=== PATIENT | female | born 1980 | race Caucasian/White ===

== ENCOUNTER 2018-04-19 21:28 | Emergency (ER) | payer BC ==
[2018-04-19] MEDS ORDERED: ONDANSETRON 4 MG/2 ML VIAL IVP STA (22:11)
[2018-04-19] MEDS ORDERED: SODIUM CHLORIDE 0.9% 1,000 ML IV STA (22:11)
[2018-04-19 22:58] LABS: Basophils % (A) 1 %; Eosinophils # (A) 0.1 k/uL (0-0.7); Eosinophils % (A) 2 %; HCT 44.6 % (34.0-46.0); Lymphocytes # (A) 0.7 k/uL (1.0-4.8); Lymphocytes % (A) 7 %; MCH 30.5 pg (25.0-35.0); MCHC 33.7 g/dL (31.0-37.0); MCV 90.6 fL (80.0-100.0); Mean Platelet Volume 7.7; Monocytes # (A) 0.5 k/uL (0-1.0); Monocytes % (A) 5 %; Neutrophils # (A) 7.8 k/uL (1.3-7.7); Neutrophils % (A) 85 %; Platelet Count 176 k/uL (150-450); RBC 4.92 m/uL (3.80-5.40); RDW 12.8 % (11.5-15.5); WBC 9.2 k/uL (3.8-10.6)
[2018-04-19 23:01] LABS: Appearance,Urine Clear (Clear); Bilirubin,Urine Negative (Negative); Blood,Urine Negative (Negative); Color,Urine Yellow; Glucose,Urine (UA) Negative (Negative); Ketones,Urine 4+ (Negative); Leukocyte Esterase,Urine Small (Negative); Mucus,Urine Moderate /hpf; Nitrite,Urine Negative (Negative); Protein,Urine Trace (Negative); RBC,Urine 2 /hpf (0-5); Specific Gravity,Urine 1.029 (1.001-1.035); Squamous Epithelial Cell,Urine 7 /hpf (0-4)
[2018-04-19 23:02] LABS: ALT 31 U/L (9-52); AST 24 U/L (14-36); Albumin 4.3 g/dL (3.5-5.0); Alkaline Phosphatase 75 U/L (38-126); Amylase 50 U/L (30-110); Anion Gap 10 mmol/L; Blood Urea Nitrogen 12 mg/dL (7-17); Calcium 9.8 mg/dL (8.4-10.2); Carbon Dioxide 21 mmol/L (22-30); Chloride 107 mmol/L (98-107); Glucose 99 mg/dL (74-99); Lipase 48 U/L (23-300); Potassium 4.1 mmol/L (3.5-5.1); Sodium 138 mmol/L (137-145); Total Protein 7.4 g/dL (6.3-8.2)
--- NOTE | 2018-04-19 23:44 | ED ---
General Adult HPI - General Chief complaint: Nausea/Vomiting/Diarrhea Stated complaint: Vomiting Source: patient, RN notes reviewed, old records reviewed Mode of arrival: ambulatory Limitations: no limitations - History of Present Illness Initial comments: 37-year-old female patient with past history of migraine disorder presents to ED with 3 days of sinus congestion, left otalgia. Patient additionally complained of approximately 4 episodes of nausea and vomiting today, and a headache located in her L frontal lobe. Pt reports that the headache has been waxing and waning for approximately 3 days. Pt states that she has a history of migraine headaches and they are located in the same location. Patient states that this seems like her typical migraine headache however less severe. Patient reports that she also has nausea and vomiting with her migraine headaches. Pt denies acute onset, thunderclap, worst headache of life. Pt denies recent fall or trauma Patient denies any other complaints. Patient denies chest pain, shortness of breath, abdominal pain. Systemic: Pt denies fatigue, myalgia, fever/chills, rash. Pt denies weakness, night sweats, weight loss. Neuro: Pt denies headache, visual disturbances, syncope or pre-syncope. HEENT: Pt denies ocular discharge or irritation, pharyngitis or notable lymphadenopathy. Cardiopulmonary: Pt denies chest pain, SOB, heart palpitations, dyspnea on exertion. Abdominal/GI: Pt denies abdominal pain. : Pt denies dysuria, burning w/ urination, frequency/urgency. Denies new onset urinary or bowel incontinence. MSK: Pt denies myalgia, loss of strength or function in extremities. Neuro: Pt denies new onset weakness, paresthesias. - Related Data Home Medications Medication Instructions Recorded Confirmed Naproxen Sodium [Aleve] 220 mg PO DAILY PRN 04/19/18 04/19/18 Phenylephrine/Dm/Acetaminop/GG 15 ml PO Q6H PRN 04/19/18 04/19/18 [Vicks Dayquil Severe Cold-Flu] Previous Rx's Medication Instructions Recorded Amoxicillin/Potassium Clav 1 each PO Q12HR #20 tab 04/20/18 [Augmentin 875-125 Tablet] Ondansetron Odt [Zofran ODT] 4 mg PO Q8HR PRN #20 tab 04/20/18 Allergies Allergy/AdvReac Type Severity Reaction Status Date / Time No Known Allergies Allergy Verified 04/19/18 23:05 Review of Systems ROS Statement: Those systems with pertinent positive or pertinent negative responses have been documented in the HPI. ROS Other: All systems not noted in ROS Statement are negative. Past Medical History Past Medical History: No Reported History History of Any Multi-Drug Resistant Organisms: None Reported Past Surgical History: Appendectomy Additional Past Surgical History / Comment(s): FALLOPIAN TUBE REMOVAL Past Psychological History: No Psychological Hx Reported Smoking Status: Never smoker Past Alcohol Use History: None Reported, Occasional Past Drug Use History: None Reported General Exam - General Exam Comments Initial Comments: Constitutional: NAD, AOX3, Pt has pleasant affect. HEENT: NC/AT, trachea midline, neck supple, no lymphadenopathy. Posterior pharynx non erythematous, without exudates. External ears appear normal, without discharge. Ears irrigated bilaterally, large amount of cerumen removed from each ear canal. TM pale ulloa bilaterally. L TM mildly erythematous, R TM pale ulloa. No bulging or perforation bilaterally. Mucous membranes moist. Eyes PERRLA, EOM intact. There is no scleral icterus. No pallor noted. Cardiopulmonary: RRR, no murmurs, rubs or gallops, no JVD noted. Lungs CTAB in anterior and posterior vaz. No peripheral edema. Abdominal exam: Abdomen soft and non-distended. Abdomen non-tender to palpation in all 4 quadrants. Bowel sounds active in LLQ. No hepatosplenomegaly. No ecchymosis Neuro: CN II-XII intact. No nuchal rigidity. Kernigs and Brudzinski's negative. MSK: No posterior calf tenderness bilaterally, homans sign negative bilaterally. Posterior tibialis and radial pulse +2 bilaterally. Sensation intact in upper and lower extremities. Full active ROM in upper and lower extremities, 5/5 stregnth. Limitations: no limitations Course Vital Signs 04/19/18 04/20/18 21:52 02:02 Temperature 98.3 F 98.6 F Pulse Rate 82 67 Respiratory 16 18 Rate Blood Pressure 120/81 122/79 O2 Sat by Pulse 99 98 Oximetry Medical Decision Making - Medical Decision Making 37-year-old female patient with past history of migraine disorder presents to ED with 3 days of sinus congestion, left otalgia. Patient additionally complained of approximately 4 episodes of nausea and vomiting today, and a headache located in her L frontal lobe. Pt reports that the headache has been waxing and waning for approximately 3 days. Pt states that she has a history of migraine headaches and they are located in the same location. Patient states that this seems like her typical migraine headache however less severe. Patient reports that she also has nausea and vomiting with her migraine headaches. Pt denies acute onset, thunderclap, worst headache of life. Pt denies recent fall or trauma. Physical exam revealed cerumen impaction, ears irrigated bilatearlly. Neuro exam wnl. Pt states otalgia improved. Repeat exam revealed mildly erythematous L TM. Laboratory investigations revealed non- impressive CBC, CMP, lactic acid negative. UA displayed +4 ketones, negative HCG. Influenza swab negative. Pt improved with IV fluids, zofran, toradol. Pt to be treated with augmentin for sinusitis and otitis media. Headache resolved. Pt to follow with PCP in 1-2 days. Patient to return to ED if new signs or symptoms develop or if condition worsens in any way. Case discussed with Dr. Nielsen. - Lab Data Result diagrams: 04/19/18 22:40 04/19/18 22:40 Lab Results 04/19/18 04/19/18 04/19/18 Range/Units 22:40 22:40 22:40 WBC 9.2 (3.8-10.6) k/uL RBC 4.92 (3.80-5.40) m/uL Hgb 15.0 (11.4-16.0) gm/dL Hct 44.6 (34.0-46.0) % MCV 90.6 (80.0-100.0) fL MCH 30.5 (25.0-35.0) pg MCHC 33.7 (31.0-37.0) g/dL RDW 12.8 (11.5-15.5) % Plt Count 176 (150-450) k/uL Neutrophils % 85 % Lymphocytes % 7 % Monocytes % 5 % Eosinophils % 2 % Basophils % 1 % Neutrophils # 7.8 H (1.3-7.7) k/uL Lymphocytes # 0.7 L (1.0-4.8) k/uL Monocytes # 0.5 (0-1.0) k/uL Eosinophils # 0.1 (0-0.7) k/uL Basophils # 0.0 (0-0.2) k/uL Sodium 138 (137-145) mmol/L Potassium 4.1 (3.5-5.1) mmol/L Chloride 107 (98-107) mmol/L Carbon Dioxide 21 L (22-30) mmol/L Anion Gap 10 mmol/L BUN 12 (7-17) mg/dL Creatinine 0.59 (0.52-1.04) mg/dL Est GFR (CKD-EPI)AfAm >90 (>60 ml/min/1.73 sqM) Est GFR (CKD-EPI)NonAf >90 (>60 ml/min/1.73 sqM) Glucose 99 (74-99) mg/dL Plasma Lactic Acid Dez (0.7-2.0) mmol/L Calcium 9.8 (8.4-10.2) mg/dL Total Bilirubin 1.0 (0.2-1.3) mg/dL AST 24 (14-36) U/L ALT 31 (9-52) U/L Alkaline Phosphatase 75 (38-126) U/L Total Protein 7.4 (6.3-8.2) g/dL Albumin 4.3 (3.5-5.0) g/dL Amylase 50 (30-110) U/L Lipase 48 (23-300) U/L Urine Color Urine Appearance (Clear) Urine pH (5.0-8.0) Ur Specific [place] (1.001-1.035) Urine Protein (Negative) Urine Glucose (UA) (Negative) Urine Ketones (Negative) Urine Blood (Negative) Urine Nitrite (Negative) Urine Bilirubin (Negative) Urine Urobilinogen (<2.0) mg/dL Ur Leukocyte Esterase (Negative) Urine RBC (0-5) /hpf Urine WBC (0-5) /hpf Ur Squamous Epith Cells (0-4) /hpf Urine Mucus (None) /hpf Urine HCG, Qual (Not Detectd) Influenza Type A RNA Not Detected (Not Detectd) Influenza Type B (PCR) Not Detected (Not Detectd) 04/19/18 04/19/18 04/19/18 Range/Units 22:40 22:44 22:44 WBC (3.8-10.6) k/uL RBC (3.80-5.40) m/uL Hgb (11.4-16.0) gm/dL Hct (34.0-46.0) % MCV (80.0-100.0) fL MCH (25.0-35.0) pg MCHC (31.0-37.0) g/dL RDW (11.5-15.5) % Plt Count (150-450) k/uL Neutrophils % % Lymphocytes % % Monocytes % % Eosinophils % % Basophils % % Neutrophils # (1.3-7.7) k/uL Lymphocytes # (1.0-4.8) k/uL Monocytes # (0-1.0) k/uL Eosinophils # (0-0.7) k/uL Basophils # (0-0.2) k/uL Sodium (137-145) mmol/L Potassium (3.5-5.1) mmol/L Chloride (98-107) mmol/L Carbon Dioxide (22-30) mmol/L Anion Gap mmol/L BUN (7-17) mg/dL Creatinine (0.52-1.04) mg/dL Est GFR (CKD-EPI)AfAm (>60 ml/min/1.73 sqM) Est GFR (CKD-EPI)NonAf (>60 ml/min/1.73 sqM) Glucose (74-99) mg/dL Plasma Lactic Acid Dez 0.9 (0.7-2.0) mmol/L Calcium (8.4-10.2) mg/dL Total Bilirubin (0.2-1.3) mg/dL AST (14-36) U/L ALT (9-52) U/L Alkaline Phosphatase (38-126) U/L Total Protein (6.3-8.2) g/dL Albumin (3.5-5.0) g/dL Amylase (30-110) U/L Lipase (23-300) U/L Urine Color Yellow Urine Appearance Clear (Clear) Urine pH 6.0 (5.0-8.0) Ur Specific [place] 1.029 (1.001-1.035) Urine Protein Trace H (Negative) Urine Glucose (UA) Negative (Negative) Urine Ketones 4+ H (Negative) Urine Blood Negative (Negative) Urine Nitrite Negative (Negative) Urine Bilirubin Negative (Negative) Urine Urobilinogen 2.0 (<2.0) mg/dL Ur Leukocyte Esterase Small H (Negative) Urine RBC 2 (0-5) /hpf Urine WBC 2 (0-5) /hpf Ur Squamous Epith Cells 7 H (0-4) /hpf Urine Mucus Moderate H (None) /hpf Urine HCG, Qual Not Detected (Not Detectd) Influenza Type A RNA (Not Detectd) Influenza Type B (PCR) (Not Detectd) Disposition Clinical Impression: Sinusitis, Cerumen impaction, Viral syndrome, Otitis media Disposition: HOME SELF-CARE Condition: Good Instructions: Sinusitis (ED), Cerumen Impaction (ED), Acute Nausea and Vomiting (ED) Additional Instructions: Patient to adhere to previously discussed treatment plan and will take medication(s) as directed. Patient to follow up with PCP in 1-2 days. Patient to return to ED if symptoms do not improve. Prescriptions: Amoxicillin/Potassium Clav [Augmentin 875-125 Tablet] 1 each PO Q12HR #20 tab Ondansetron Odt [Zofran ODT] 4 mg PO Q8HR PRN #20 tab PRN Reason: Nausea Is patient prescribed a controlled substance at d/c from ED?: No Referrals: Stanley Randle MD [Primary Care Provider] - 1-2 days Time of Disposition: 02:01
[2018-04-20] MEDS ORDERED: KETOROLAC 30 MG/ML 1 ML VIAL IVP STA (00:03)
[2018-04-20 02:12] VITALS: BP 122/79; PULSE 67; RESP 18; TEMP 98.6
== END 2018-04-20 02:03 | disposition home or self-care (01) ==
LOC: EC 21:28
DX: J32.9 Chronic sinusitis, unspecified (principal); H66.92 Otitis media, unspecified, left ear; B34.9 Viral infection, unspecified; H61.23 Impacted cerumen, bilateral
CPT/HCPCS: 36415; 80053; 82150; 83605; 83690; 85025; 81001; 81025; 87502; 99284; 69209 ×2; 96374; 96375; 96361; J2405; J1885

== ENCOUNTER 2018-08-30 19:33 | Emergency (ER) | payer BC ==
[2018-08-30] MEDS ORDERED: SODIUM CHLORIDE 0.9% 1,000 ML IV ONE (20:05)
[2018-08-30 20:39] LABS: Appearance,Urine Clear (Clear); Bilirubin,Urine Negative (Negative); Blood,Urine Moderate (Negative); Color,Urine Light Red; Glucose,Urine (UA) Negative (Negative); Ketones,Urine Negative (Negative); Leukocyte Esterase,Urine Trace (Negative); Mucus,Urine Rare /hpf; Nitrite,Urine Negative (Negative); Protein,Urine 1+ (Negative); RBC,Urine >182 /hpf (0-5); Specific Gravity,Urine 1.029 (1.001-1.035); Squamous Epithelial Cell,Urine 1 /hpf (0-4)
--- NOTE | 2018-08-30 20:59 | ED ---
Female Urogenital HPI - General Chief complaint: Vaginal Bleeding Stated complaint: Vaginal Bleeding Time Seen by Provider: 08/30/18 19:46 Source: patient Mode of arrival: ambulatory Limitations: no limitations - History of Present Illness Initial comments: 37-year-old female patient presents to the emergency department today for evaluation of heavy vaginal bleeding with passage of clots. Patient's that she's had bleeding for the last 3 days however starting this morning the bleeding became more heavy and she has passed medium-sized clots. Patient states that at one point she did have to change her pad after only having and on for a few minutes that she presented here for further evaluation. Patient states she did have an elective performed 4-5 weeks ago. States for a couple of days she did have a follow odor noted but that did resolve. States she does have a follow-up appointment with her physician in a week. She denies any fever or chills with this. Denies any hematuria, dysuria, urinary frequency, urinary urgency. Denies any significant abdominal or low back pain. Patient denies any recent rash, shortness breath, chest pain, nausea, vomiting, diarrhea, constipation, back pain, numbness, tingling, dizziness, weakness, headache, visual changes, or any other complaints. - Related Data Home Medications Medication Instructions Recorded Confirmed Naproxen Sodium [Aleve] 220 mg PO DAILY PRN 04/19/18 04/19/18 Phenylephrine/Dm/Acetaminop/GG 15 ml PO Q6H PRN 04/19/18 04/19/18 [Vicks Dayquil Severe Cold-Flu] Previous Rx's Medication Instructions Recorded Amoxicillin/Potassium Clav 1 each PO Q12HR #20 tab 04/20/18 [Augmentin 875-125 Tablet] Ondansetron Odt [Zofran ODT] 4 mg PO Q8HR PRN #20 tab 04/20/18 Allergies Allergy/AdvReac Type Severity Reaction Status Date / Time No Known Allergies Allergy Verified 08/30/18 19:37 Review of Systems ROS Statement: Those systems with pertinent positive or pertinent negative responses have been documented in the HPI. ROS Other: All systems not noted in ROS Statement are negative. Past Medical History Past Medical History: No Reported History History of Any Multi-Drug Resistant Organisms: None Reported Past Surgical History: Appendectomy Additional Past Surgical History / Comment(s): FALLOPIAN TUBE REMOVAL Past Psychological History: No Psychological Hx Reported Smoking Status: Current every day smoker Past Alcohol Use History: None Reported, Occasional Past Drug Use History: None Reported General Exam Limitations: no limitations General appearance: alert, in no apparent distress, other (Physical well- developed, well-nourished adult female patient in no acute distress. Vital signs upon presentation are temperature 98.5F, pulse 77, respirations 18, blood pressure 145/87, pulse ox 99% on room air.) Eye exam: Present: normal appearance, PERRL, EOMI. Absent: scleral icterus, conjunctival injection, periorbital swelling ENT exam: Present: normal exam, normal oropharynx, mucous membranes moist Respiratory exam: Present: normal lung sounds bilaterally. Absent: respiratory distress, wheezes, rales, rhonchi, stridor Cardiovascular Exam: Present: regular rate, normal rhythm, normal heart sounds. Absent: systolic murmur, diastolic murmur, rubs, gallop, clicks GI/Abdominal exam: Present: soft, normal bowel sounds. Absent: distended, tenderness, guarding, rebound, rigid External exam: Present: normal external exam Speculum exam: Present: vaginal bleeding (Moderate), other (Small clots noted in the vaginal vault) By manual exam: Present: normal by manual exam Neurological exam: Present: alert, oriented X3, CN II-XII intact Psychiatric exam: Present: normal affect, normal mood Skin exam: Present: warm, dry, intact, normal color. Absent: rash Course Vital Signs 08/30/18 08/30/18 08/30/18 19:35 22:12 22:59 Temperature 98.5 F 98.2 F Pulse Rate 77 62 Respiratory 18 15 16 Rate Blood Pressure 145/87 104/71 O2 Sat by Pulse 99 97 Oximetry Medical Decision Making - Medical Decision Making 37 year-old female patient presents to the emergency department today for evaluation of heavy vaginal bleeding and passage of clots. Patient did undergo elective 4-5 weeks ago. Patient states bleeding started 3 days ago and has increased and heaviness today. Pelvic exam was obtained and did show mild to moderate vaginal bleeding with passage of small clots. Ultrasound was obtained and did show a thickened and edematous endometrium consistent with recent termination of . Labs reviewed and were unremarkable. Hemoglobin is stable. Vital signs upon within normal range as well as department. Patient denies any significant pain or discomfort. She'll be discharged to follow-up with her special effects designer for recheck as soon as possible. Return parameters were discussed in detail and she verbalizes understanding and agrees this plan. - Lab Data Result diagrams: 08/30/18 20:45 08/30/18 20:45 Lab Results 08/30/18 08/30/18 08/30/18 Range/Units 20:15 20:45 20:45 WBC 6.1 (3.8-10.6) k/uL RBC 4.44 (3.80-5.40) m/uL Hgb 13.6 (11.4-16.0) gm/dL Hct 40.6 (34.0-46.0) % MCV 91.4 (80.0-100.0) fL MCH 30.6 (25.0-35.0) pg MCHC 33.4 (31.0-37.0) g/dL RDW 13.5 (11.5-15.5) % Plt Count 190 (150-450) k/uL Neutrophils % 58 % Lymphocytes % 31 % Monocytes % 4 % Eosinophils % 4 % Basophils % 1 % Neutrophils # 3.6 (1.3-7.7) k/uL Lymphocytes # 1.9 (1.0-4.8) k/uL Monocytes # 0.3 (0-1.0) k/uL Eosinophils # 0.2 (0-0.7) k/uL Basophils # 0.0 (0-0.2) k/uL Sodium 140 (137-145) mmol/L Potassium 4.1 (3.5-5.1) mmol/L Chloride 111 H (98-107) mmol/L Carbon Dioxide 22 (22-30) mmol/L Anion Gap 7 mmol/L BUN 16 (7-17) mg/dL Creatinine 0.66 (0.52-1.04) mg/dL Est GFR (CKD-EPI)AfAm >90 (>60 ml/min/1.73 sqM) Est GFR (CKD-EPI)NonAf >90 (>60 ml/min/1.73 sqM) Glucose 86 (74-99) mg/dL Calcium 9.5 (8.4-10.2) mg/dL Total Bilirubin 0.3 (0.2-1.3) mg/dL AST 24 (14-36) U/L ALT 16 (9-52) U/L Alkaline Phosphatase 79 (38-126) U/L Total Protein 7.0 (6.3-8.2) g/dL Albumin 4.3 (3.5-5.0) g/dL HCG, Quant mIU/mL Urine Color Light Red Urine Appearance Clear (Clear) Urine pH 6.0 (5.0-8.0) Ur Specific [place] 1.029 (1.001-1.035) Urine Protein 1+ H (Negative) Urine Glucose (UA) Negative (Negative) Urine Ketones Negative (Negative) Urine Blood Moderate H (Negative) Urine Nitrite Negative (Negative) Urine Bilirubin Negative (Negative) Urine Urobilinogen 2.0 (<2.0) mg/dL Ur Leukocyte Esterase Trace H (Negative) Urine RBC >182 H (0-5) /hpf Urine WBC 26 H (0-5) /hpf Ur Squamous Epith Cells 1 (0-4) /hpf Urine Mucus Rare H (None) /hpf 08/30/18 Range/Units 20:45 WBC (3.8-10.6) k/uL RBC (3.80-5.40) m/uL Hgb (11.4-16.0) gm/dL Hct (34.0-46.0) % MCV (80.0-100.0) fL MCH (25.0-35.0) pg MCHC (31.0-37.0) g/dL RDW (11.5-15.5) % Plt Count (150-450) k/uL Neutrophils % % Lymphocytes % % Monocytes % % Eosinophils % % Basophils % % Neutrophils # (1.3-7.7) k/uL Lymphocytes # (1.0-4.8) k/uL Monocytes # (0-1.0) k/uL Eosinophils # (0-0.7) k/uL Basophils # (0-0.2) k/uL Sodium (137-145) mmol/L Potassium (3.5-5.1) mmol/L Chloride (98-107) mmol/L Carbon Dioxide (22-30) mmol/L Anion Gap mmol/L BUN (7-17) mg/dL Creatinine (0.52-1.04) mg/dL Est GFR (CKD-EPI)AfAm (>60 ml/min/1.73 sqM) Est GFR (CKD-EPI)NonAf (>60 ml/min/1.73 sqM) Glucose (74-99) mg/dL Calcium (8.4-10.2) mg/dL Total Bilirubin (0.2-1.3) mg/dL AST (14-36) U/L ALT (9-52) U/L Alkaline Phosphatase (38-126) U/L Total Protein (6.3-8.2) g/dL Albumin (3.5-5.0) g/dL HCG, Quant 12.1 mIU/mL Urine Color Urine Appearance (Clear) Urine pH (5.0-8.0) Ur Specific [place] (1.001-1.035) Urine Protein (Negative) Urine Glucose (UA) (Negative) Urine Ketones (Negative) Urine Blood (Negative) Urine Nitrite (Negative) Urine Bilirubin (Negative) Urine Urobilinogen (<2.0) mg/dL Ur Leukocyte Esterase (Negative) Urine RBC (0-5) /hpf Urine WBC (0-5) /hpf Ur Squamous Epith Cells (0-4) /hpf Urine Mucus (None) /hpf - Radiology Data Radiology results: report reviewed, image reviewed Transvaginal ultrasound was obtained. Report reviewed in its entirety. Impression by Dr. Longoria shows heterogenous and edematous uterus a prominent endometrium. His eyes are consistent with reported history of recent termin ation of . Close clinical follow-up, serial beta hCGs and sonographic evaluation recommended to ensure beta hCG returns to 0 and exclude retained products of conception. Disposition Clinical Impression: Vaginal bleeding Disposition: HOME SELF-CARE Condition: Good Instructions (If sedation given, give patient instructions): Dysfunctional Uterine Bleeding (ED) Additional Instructions: Increase fluids. Rest. Follow-up with your physician for recheck as soon as possible. Return to the emergency department immediately for any new, worsening, or concerning symptoms. Is patient prescribed a controlled substance at d/c from ED?: No Referrals: Stanley Randle MD [Primary Care Provider] - 1-2 days Time of Disposition: 22:43
[2018-08-30 21:26] LABS: Basophils % (A) 1 %; Eosinophils # (A) 0.2 k/uL (0-0.7); Eosinophils % (A) 4 %; HCT 40.6 % (34.0-46.0); HGB 13.6 gm/dL (11.4-16.0); Lymphocytes # (A) 1.9 k/uL (1.0-4.8); Lymphocytes % (A) 31 %; MCH 30.6 pg (25.0-35.0); MCHC 33.4 g/dL (31.0-37.0); MCV 91.4 fL (80.0-100.0); Mean Platelet Volume 8.3; Monocytes # (A) 0.3 k/uL (0-1.0); Monocytes % (A) 4 %; Neutrophils # (A) 3.6 k/uL (1.3-7.7); Neutrophils % (A) 58 %; Platelet Count 190 k/uL (150-450); RBC 4.44 m/uL (3.80-5.40); RDW 13.5 % (11.5-15.5); WBC 6.1 k/uL (3.8-10.6)
[2018-08-30 21:30] LABS: ALT 16 U/L (9-52); AST 24 U/L (14-36); Albumin 4.3 g/dL (3.5-5.0); Alkaline Phosphatase 79 U/L (38-126); Anion Gap 7 mmol/L; Blood Urea Nitrogen 16 mg/dL (7-17); Calcium 9.5 mg/dL (8.4-10.2); Carbon Dioxide 22 mmol/L (22-30); Chloride 111 mmol/L (98-107); Glucose 86 mg/dL (74-99); Potassium 4.1 mmol/L (3.5-5.1); Sodium 140 mmol/L (137-145); Total Bilirubin 0.3 mg/dL (0.2-1.3)
--- NOTE | 2018-08-30 21:35 | US ---
EXAMINATION TYPE: US transvaginal DATE OF EXAM: 08/30/2018 COMPARISON: Transvaginal ultrasound 06/17/2014. CLINICAL HISTORY: Pelvic pain. Patient states having an 4-5 weeks ago. Patient states havin g an increase in spotting today. Hx of left fallopian tube removal. TECHNIQUE: Transvaginal (TV). Date of LMP: Unknown, A2 EXAM MEASUREMENTS: Uterus: 8.1 x 4.5 x 4.2 cm Endometrial Stripe: 1.5 cm Right Ovary: 2.3 x 1.6 x 1.7 cm Left Ovary: 2.4 x 1.9 x 2.4 cm 1. Uterus: Anteverted and heterogenous 2. Endometrium: Thickened and heterogenous measuring up to 1.5 cm 3. Right Ovary: follicles seen 4. Left Ovary: hypoechoic lesion - 1.3 x 1.2 x 1.2 cm Spectral, color and waveform doppler imaging shows good arterial and venous flow within the ovaries ; there is no evidence for ovarian torsion. 5. Bilateral Adnexa: wnl 6. Posterior cul-de-sac: no free fluid IMPRESSION: Heterogenous and edematous uterus with prominent endometrium. These findings are consistent with the reported history of recent termination of . Close clinical follow-up, serial beta hCGs and s onographic evaluation are recommended to ensure beta hCG returns to 0 and exclude retained products o f conception.
[2018-08-30 22:13] VITALS: BP 104/71; PULSE 62; TEMP 98.2
[2018-08-30 23:00] VITALS: RESP 16
== END 2018-08-30 22:55 | disposition home or self-care (01) ==
LOC: EC 19:33
DX: N93.9 Abnormal uterine and vaginal bleeding, unspecified (principal); R93.89 Abnormal findings on diagnostic imaging of other specified body structures; F17.200 Nicotine dependence, unspecified, uncomplicated; Z90.79 Acquired absence of other genital organ(s)
CPT/HCPCS: 36415; 76830; 80053; 81001; 84702; 85025; 87070; 87086; 87205; 93975; 96360; 99284

== ENCOUNTER → 2019-06-25 | Outpatient (CLI) | payer BC ==
[2019-06-25 13:31] LABS: Basophils % (A) 1 %; Eosinophils # (A) 0.2 k/uL (0-0.7); Eosinophils % (A) 3 %; HGB 13.7 gm/dL (11.4-16.0); Lymphocytes # (A) 1.6 k/uL (1.0-4.8); Lymphocytes % (A) 29 %; MCH 30.6 pg (25.0-35.0); MCHC 32.6 g/dL (31.0-37.0); MCV 93.7 fL (80.0-100.0); Mean Platelet Volume 8.7; Monocytes # (A) 0.3 k/uL (0-1.0); Monocytes % (A) 5 %; Neutrophils # (A) 3.4 k/uL (1.3-7.7); Neutrophils % (A) 61 %; Platelet Count 192 k/uL (150-450); RBC 4.48 m/uL (3.80-5.40); RDW 12.2 % (11.5-15.5); WBC 5.6 k/uL (3.8-10.6)
== END | disposition home or self-care (01) ==
LOC: LABPAT 13:03
PROVIDERS: ATTEND Obstetrics & Gynecology
DX: Z01.818 Encounter for other preprocedural examination (principal)
CPT/HCPCS: 36415; 85025

== ENCOUNTER 2019-11-12 05:46 | Day surgery (SDC) | payer BC, OTHER ==
[2019-11-09 10:22] VITALS: BMI 30.2
--- NOTE | 2019-11-11 07:59 | P.HPOB ---
History of Present Illness H&P Date: 11/11/19 Chief Complaint: Pt requesting tubal ligation. This patient is a pleasant 38 yr female who presents requesting laparoscopic tubal cauterization for permanent sterilization. She and I have discussed various control methods and this is the method she has chosen. Partner will not get a vasectomy. Past Medical History Past Medical History: No Reported History History of Any Multi-Drug Resistant Organisms: None Reported Past Surgical History: Appendectomy Additional Past Surgical History / Comment(s): FALLOPIAN TUBE REMOVAL. Past Anesthesia/Blood Transfusion Reactions: No Reported Reaction Past Psychological History: No Psychological Hx Reported Smoking Status: Current every day smoker Past Alcohol Use History: None Reported, Occasional Additional Past Alcohol Use History / Comment(s): Smokes 1/2 PPD X 2 yrs. Prior to this had quit for 4 yrs. Past Drug Use History: None Reported - Past Family History Mother Family Medical History: No Reported History Medications and Allergies Home Medications Medication Instructions Recorded Confirmed Type No Known Home Medications 11/09/19 11/09/19 History Allergies Allergy/AdvReac Type Severity Reaction Status Date / Time No Known Allergies Allergy Verified 11/09/19 10:12 Exam - OBG Physical Exam Abdomen: bowel sounds normal, no diffuse tenderness, no bruit present, no guarding noted, no hepatomegaly, no splenomegaly, no mass Vulva: both: normal Vagina: normal moisture, no discharge Cervix: no lesion, no discharge Uterus: normal size, normal contour Adnexa: both: normal Assessment and Plan Assessment: This is a pleasant 39 yr female who presents requesting permanent sterilization. Plan is laparoscopic bilateral fallopian tube cauterization. She understands that this procedure is considered permanent, however there is a failure rate of ~08/999 procedures done. She also understands that if she becomes , she has a ~50% chance of ectopic/tubal . I have discussed the risks of this surgery: infection, bleeding, possible injury to bowel/bladder/vessels and/or other organs. She understands that this procedure is elective and alternative exist. All of her questions were answered and a written consent obtained. (1) Family planning Status: Acute Code(s): Z30.09 - ENCOUNTER FOR OTH GENERAL CNSL AND ADVICE ON CONTRACEPTION SNOMED Code(s): 245799788
[~2019-11-12 05:46] MED LIST: Pre Op ABX Message 1 EACH MISC MISCELLANE ONE
[2019-11-12] MEDS ORDERED: LIDOCAINE 1% (10MG/ML) FOR IV START INTRADERMA PRN (05:53)
[2019-11-12] MEDS ORDERED: SCOPOLAMINE 1.5MG/72HR PATCH TRANSDERM ONE (05:53)
[2019-11-12] MEDS ORDERED: DEXAMETHASONE SOD PHOSPHATE 10 MG/ML 1 ML VIAL IV ONE (05:53)
[2019-11-12] MEDS ORDERED: HYDROmorphone 0.5 MG/0.5 ML SYRINGE IVP PRN (05:53)
[2019-11-12] MEDS ORDERED: ONDANSETRON 4 MG/2 ML VIAL IVP ONE (05:53)
[2019-11-12] MEDS ORDERED: LACTATED RINGERS 1,000 ML IV SCH (05:53)
[2019-11-12] MEDS ORDERED: ONDANSETRON 4 MG/2 ML VIAL ONE (06:23)
[2019-11-12] MEDS ORDERED: BUPIVACAINE (PF) 0.5% 30 ML VIAL SQ ONE ×2 (06:59→07:38)
[2019-11-12] MEDS ORDERED: ROCURONIUM BROMIDE 10 MG/ML 5 ML VIAL IV ONE (07:07)
[2019-11-12] MEDS ORDERED: LIDOCAINE 1% INJ 10MG/ML (20 ML MDV) ONE (07:07)
[2019-11-12] MEDS ORDERED: GLYCOPYRROLATE 0.2 MG/ML 2 ML VIAL ONE (07:07)
[2019-11-12] MEDS ORDERED: MIDAZOLAM 2 MG/2 ML VIAL ONE (07:07)
[2019-11-12] MEDS ORDERED: PROPOFOL 10 MG/ML 20 ML VIAL IV ONE (07:07)
[2019-11-12] MEDS ORDERED: KETOROLAC 30 MG/ML 1 ML VIAL ONE (07:07)
[2019-11-12] MEDS ORDERED: SUCCINYLCHOLINE CHLORIDE 100 MG/5 ML SYR IV ONE (07:07)
[2019-11-12] MEDS ORDERED: fentaNYL (PF) 50 MCG/ML 2 ML AMP ONE (07:07)
[2019-11-12] MEDS ORDERED: NEOSTIGMINE 1 MG/ML 10 ML VIAL ONE (07:07)
[2019-11-12 07:55] VITALS: TEMP 97
[2019-11-12 08:02] VITALS: RESP 16
--- NOTE | 2019-11-12 08:02 | P.OP ---
Date of Procedure: 11/12/19 Preoperative Diagnosis: Multi parity desires permanent sterilization Postoperative Diagnosis: Same Procedure(s) Performed: Laparoscopy with right fallopian tube cauterization Anesthesia: DORITAA Surgeon: Karsten Randolph Estimated Blood Loss (ml): 10 Urine output (ml): 25 Pathology: none sent Condition: stable Disposition: PACU Indications for Procedure: Please see dictated H&P for intimate details of this patient's admission. Brief summary this is a pleasant 39-year-old multiparous patient requesting tubal sterilization. Surgery was discussed the surgery and risks and risks of infection, bleeding, possible injury to bowel, bladder, vessels, and other organs. Patient also understands this procedure is considered permanent although is a failure rate of approximately 5 per thousand procedures done Operative Findings: This patient had a normal-appearing uterus and right tube and ovary. The left fallopian tube was absent Description of Procedure: This patient is taken to the operating room where she is laid in the supine position. She subsequent undergoes general endotracheal anesthesia without incident. With an adequate level of anesthesia she's placed in the dorsal lithotomy position. She has a vaginal perineal prep and drape. She has abdominal prep and drape. I first good on below placed a speculum into the vagina. I grabbed the anterior lip of the cervix with an Allis clamp and a small acorn cannula is gently placed into the endocervix. Red Cano catheter is then placed in the bladder and this is allowed to continuously drain. Then changed gloves and go up above. I can 10 mm infraumbilical incision just beneath the umbilicus. Using a 10 mm bladed lists optical trocar I placed the trocar directly into the peritoneal cavity. With peritoneal placement confirmed pneumoperitoneum is created to 12 mm of carbon dioxide gas. Patient placed in Trendelenburg position. Proximally 2 finger breaths above the symphysis pubis I make a 5 mm incision. Through this a 5 mm bladed lists trochars placed under direct visualization. A blunt probe was then used to visualize uterus and pelvis. The left fallopian tube is absent. Right fallopian tube and ovary appear normal. Using bipolar cautery, I grabbed the right fallopian tube approximately 4 cm from its cornual insertion and cauterize a 4 cm segment of the fallopian tube. This done the procedure is ended. I visualize the pelvis and upper abdomen and the rest appears normal. The lower trochars removed under direct visualization good hemostasis is noted. Pneumoperitoneum was reduced and the upper trochars removed. Both incisions are closed with a 4-0 Vicryl. Steri-Strips and sterile dressing is applied. I do infiltrated with half percent Marcaine both incisions for postoperative pain control. I then good on below remove the acorn cannula catheter an Allis clamp. All counts are correct 3. There are no complications. Patient is taken to the recovery room in satisfactory condition.
[2019-11-12 08:33] VITALS: BP 114/81; PULSE 64
== END 2019-11-12 09:13 | disposition home or self-care (01) ==
LOC: OR 05:46
PROVIDERS: ATTEND Obstetrics & Gynecology
DX: Z30.2 Encounter for sterilization (principal); Z90.79 Acquired absence of other genital organ(s); Z90.49 Acquired absence of other specified parts of digestive tract; F17.210 Nicotine dependence, cigarettes, uncomplicated
CPT/HCPCS: 81025; 58670; J2250; J1100; J2710; J2405; J2001; J3010; J1885; J0330; J2704